=== PATIENT | female | born 1950 | race Caucasian/White ===

== ENCOUNTER 2018-01-02 06:31 | Inpatient (IN) ==
[2018-01-02] MEDS ORDERED: Metoprolol Tartrate 25 MG Tablet PO SCH (07:15)
[2018-01-02] MEDS ORDERED: Chlorhexidine Gluconate 2% 1 Pack (2 Cloths) TOPICAL SCH (07:15)
[2018-01-02] MEDS ORDERED: Dextrose 5%/NaCl 0.9% Inj 1,000 ML IV.SIG SCH (07:30)
[2018-01-02] MEDS ORDERED: ceFAZolin 2 GM IV; once IV.SIG ONE (07:30)
[2018-01-02] MEDS ORDERED: Sodium Chlor 0.9% Inj 500 ML IV.SIG SCH (08:00)
[2018-01-02] MEDS ORDERED: Neostigmine Inj 5 MG/5 ML Syringe IV.PUSH ONE (12:00)
[2018-01-02] MEDS ORDERED: Phenylephrine/NS 1000 MCG/10ML Syringe IV.PUSH ONE (12:00)
[2018-01-02] MEDS ORDERED: Ketorolac Inj 30 MG/ML (IVP) Vial IV.PUSH ONE (12:00)
[2018-01-02] MEDS ORDERED: Lidocaine PF 1% Inj 5 ML Syringe INFILTRATN ONE (12:00)
[2018-01-02] MEDS ORDERED: Glycopyrrolate Inj 1 MG/5 ML Syringe IV.PUSH ONE (12:00)
[2018-01-02] MEDS ORDERED: KCL 20 mEq/D5W/NaCl 0.9% Inj 1,000 ML IV.CONT SCH (16:00)
[2018-01-02] MEDS ORDERED: fentaNYL Citrate Inj 100 MCG/2 ML Ampul ONE (16:12)
[2018-01-02] MEDS ORDERED: Morphine Inj 4 MG/ML Vial ONE (16:12)
[2018-01-02] MEDS ORDERED: *morphine SULFATE 4 MG/ML PERIprocedure ONLY ONE ×2 (16:17→18:01)
--- NOTE | 2018-01-02 16:27 | MP ---
cc: Penny Walton MD DATE OF OPERATION: 01/02/2018 DATE OF VISIT: 01/02/2018. PREOPERATIVE DIAGNOSES: 1. Colon stricture. 2. Colovaginal fistula. 3. Diverticulitis. POSTOPERATIVE DIAGNOSES: 1. Colon stricture. 2. Colovaginal fistula. 3. Diverticulitis. 4. Adhesions. 5. Small bowel lesion. PROCEDURE PERFORMED: 1. Robotic/laparoscopic lysis of adhesions. 2. Robotic takedown of the splenic flexure. 3. Robotic low anterior resection. 4. Robotic small bowel resection. OPERATIVE FINDINGS: The patient had a phlegmonous sigmoid colon that was folded over and adherent down into the pelvis and along the vaginal cuff. In addition she had evidence of thickening of the bowel through this area. The liver was visibly normal. The gallbladder, uterus and ovaries were absent. In the proximal ileum the patient had a 3-4 mm firm lesion in the antimesenteric side, which appeared to be full-thickness. OPERATIVE COURSE: The patient was brought to the operating room, and placed in the supine position. After induction of general anesthesia, the patient was placed in Aaron stirrups and all bony prominences were carefully padded. The skin of the anterior abdominal wall, as well as the perineal area, was then prepped and draped in the usual sterile fashion. A site for the camera was then chosen, just to the right and above the umbilicus. A 10/12 port was placed at this location, under direct vision using the laparoscope. CO2 insufflation was then undertaken. A brief abdominal survey was then performed, with nothing noted that would preclude the robotic approach. The #1 port, which was also a 10/12, was then placed just inside the right anterior superior iliac spine, under direct vision of the laparoscope. A #5 assist port was placed under the right costal margin, equal distance between the camera and the #1 port. The patient was hydroplaned with the head down and slightly to the right and the small bowel was attempted to be brought up and out of the pelvis. However, due to her extremely short mesentery, the small bowel was very difficult to work around throughout the entirety of the case. After evaluation of the descending colon and the sigmoid colon, I did feel that we would need to take down the splenic flexure, and so the remaining ports were placed as follows: The #3 port, which was an 8 da Sera, was placed in the umbilical line, in the left anterior axillary line, and the #2 port was placed in the left midclavicular line, 4 fingerbreadths above the umbilical line. The robot was then docked. The sigmoid colon was retracted down and to the left, and the peritoneum on the right was scored. Dissection was continued in this plane, underneath the vessels, over to the lateral side; however, I was not able to visualize the ureter as we did not have placement of ureteral stents as planned. With this, I elected to proceed with a lateral approach. The lateral peritoneal attachments of the sigmoid and descending colon were carefully dissected free. Unfortunately, because of the fold over and adhesions down in the pelvis, it was necessary to dissect these out as well before I could locate the ureter. Eventually, with slow and painstaking dissection, I dissected out all of the pelvic portion of the sigmoid until I was able to straighten out the sigmoid. This was then retracted to the right and dissection continued in the lateral plane until the left ureter was clearly identified and swept away from the specimen. Dissection continued in this plane until I met my right-sided dissection. The sigmoid colon was then retracted again to the left, and the dissection was then carried out using electrocautery down to the level of the vasculature. The inferior mesenteric vessels were then dissected free circumferentially, doubly clamped proximally and distally with Hem-o-Kaiden clamps and divided. The rectosigmoid was then retracted anteriorly and dissection was continued in the posterior plane down to the level of the mid-rectum. Dissection then continued up and around the right side and the left side. Anteriorly the vaginal cuff was very adherent to the distal sigmoid. This was carefully dissected free and dissection was continued down past the peritoneal reflection onto the mid to lower rectum, to allow for healthy bowel. Eventually, we had an area of healthy bowel on the proximal rectum. The mesentery at this level was divided using the harmonic scalpel, until we had clear bowel circumferentially. A white load of the [employer]-stapler was placed across the bowel at this level. This was closed, held for 30 seconds, fired and removed. The 29 EEA stapler was then advanced through the anus and up to the rectal stump, and there was noted to be a small dog ear. With this, I elected to dissect the mesentery back a few additional centimeters, and a reload of the [employer]rock stapler was placed across the bowel at this level, taking off the dog ear. The dog ear was then removed and discarded. A small amount of fibrofatty tissue was then cleared off the rectal stump. The lateral peritoneal attachments of the descending colon were then dissected free, working both laterally and also posteriorly, freeing the descending colon mesentery from Gerota's fascia. Eventually, we continued this dissection up and around the splenic flexure, freeing the splenic flexure back to the lesser sac, but did not dissect into the lesser sac. This allowed the splenic flexure freedom so that we could bring the bowel down with plenty of length to make an anastomosis. The bowel was then brought down and I felt that we had adequate length for our reanastomosis. Throughout the case the patient had lots of fairly fragile tissue with lots of oozing, but not bonny bleeding. Because of this, I did elect to put some Surgicel posteriorly over Gerota's fascia on the left, where she had a fairly large dissection bed, prior to undocking the robot. The robot was then undocked. A 10-15 cm transverse incision was made in the suprapubic area. Using electrocautery, dissection was carried down to the fascia of the anterior abdominal wall, which was split the length of the skin incision. The medial fibers of the rectus abdominis muscle were then divided using electrocautery, as was the posterior fascia and peritoneum. A wound protector was then placed, and the proximal stapled end of the bowel was grasped and pulled up and out through the incision. A site was then chosen for proximal division of the bowel, where the bowel appeared pink and healthy. The mesentery at this level was serially divided and ligated using 0 Vicryl ties, and a pursestring stapling device was placed across the bowel at this level. The bowel was amputated and taken to the back table where it was later opened and no sign of any cancer was noted. This was then sent for pathology. The anvil from the 29 EEA stapler was then placed into the cut end of the bowel and the previously placed pursestring suture was then secured. The small bowel was then run, beginning at the ligament of Treitz and proceeding distally to the terminal ileum. In the proximal ileum she was noted to have a tiny 3-4 mm firm nodule which was kind of whitish in color. Unfortunately, it appeared to be full thickness. I did not feel that biopsy of the lesion was safe, so I elected to resect it. The edge of the bowel was pulled away from the remainder of the bowel in a longitudinal direction to avoid any additional narrowing and a 30 cm stapling device was placed across the bowel at this level. This was fired and the specimen was then sent for pathology. The staple line was then reinforced with a running suture of 3-0 Vicryl. The bowel at this level was palpated and was found to be patent. The small bowel was then returned to the peritoneal cavity with no other significant abnormalities on the bowel. The 29 EEA stapler was advanced through the anus to the rectal stump. At that point, after evaluation, I felt that the tissue looked a little fragile and so I elected to go back an additional 2 cm. The mesentery was dissected back and a contour stapling device was placed across the bowel at this level. This was closed, fired, and removed. The stapler was again advanced to the rectal stump and lay nicely and in a better orientation with healthier bowel. The spike was advanced just posterior to the staple line. The anvil was into the spike, being careful that the bowel was not twisted. The stapler was then closed, held for 30 seconds, fired and removed, thus creating an enteroenterotomy. Both anastomotic rings appeared to be complete and the anastomosis appeared pink and healthy circumferentially. A small amount of warm normal saline was placed into the pelvis and air was insufflated into the rectum until gentle tension was noted on the anastomosis, with no sign of any bleeding noted. The anastomosis lay in a nice orientation, with no tension noted on the anastomosis. Additional Surgicel was then placed posteriorly in the pelvis to help prevent any oozing. The posterior fascia was then closed in a running fashion using #1 PDS. The wound was copiously irrigated with warm normal saline. The anterior fascia of the suprapubic site was closed in a running fashion using #1 PDS. The wound was copiously irrigated with warm normal saline and the skin was closed in a running subcuticular fashion using 3-0 Vicryl. An Op-Site was then placed and CO2 insufflation was then resumed. The laparoscope was brought onto the field, and replaced into the peritoneal cavity. The fascia at the right lower quadrant and umbilical site, which were the 10/12 trocar sites, were then closed using the cross bow device and #1 PDS suture. The wounds were copiously irrigated with warm normal saline and the skin at the trocar sites were closed in interrupted subcuticular fashion with 3-0 Vicryl. All sponge, needle and instrument counts were correct and the patient was returned to the Postanesthesia Care Unit in stable condition. MD RADHA Diallo/ONDINA , 03:40 PM , 04:26 PM MTDD
[2018-01-02 16:34] LABS: Baso % (Auto) 0.3 % (0.0-2.0); Eos % (Auto) 0.1 % (0.0-4.0); Hematocrit 39.2 % (35.0-46.0); Hemoglobin 13.1 gm/dL (11.6-15.3); Lymph # (Auto) 0.9 th/mm3 (1.0-4.8); Lymph % (Auto) 10.1 % (9.0-44.0); Mean Corpuscular HGB Conc 33.3 % (32.0-36.0); Mean Corpuscular Hemoglobin 29.5 pg (27.0-34.0); Mean Corpuscular Volume 88.5 fL (80.0-100.0); Mean Platelet Volume 7.5 fL (7.0-11.0); Mono # (Auto) 0.4 th/mm3 (0.0-0.9); Mono % (Auto) 4.2 % (0.0-8.0); Neut # (Auto) 7.6 th/mm3 (1.8-7.7); Neut % (Auto) 85.3 % (16.0-70.0); Platelet Count 153 th/mm3 (150-450); Red Blood Count 4.43 mil/mm3 (4.00-5.30); Red Cell Distribution Width 14.2 % (11.6-17.2); White Blood Count 8.9 th/mm3 (4.0-11.0)
[2018-01-02 16:51] LABS: Calcium 7.6 mg/dL (8.5-10.1); Carbon Dioxide 22.9 meq/L (21.0-32.0); Potassium 4.2 meq/L (3.5-5.1)
[2018-01-02] MEDS ORDERED: ceFAZolin 2 GM Premix Inj 2 GM/50 ML PIGGYBACK IV.SIG ONE (17:10)
[2018-01-02] MEDS ORDERED: KCL 20 mEq/D5W/NaCl 0.9% Inj 1,000 ML ONE (17:18)
[2018-01-02] MEDS ORDERED: Morphine Inj 30 MG/30 ML PCA.VIAL PCA PRN (20:04)
[2018-01-02] MEDS ORDERED: Naloxone Inj 0.4 MG/ML Vial IV.PUSH PRN (20:04)
[2018-01-02] MEDS ORDERED: Morphine Inj 4 MG/ML Vial IV.SIG ONE (20:04)
[2018-01-02] MEDS: Gabapentin 300 MG Capsule PO SCH (20:52)
[2018-01-02] MEDS: Metoprolol Tartrate 50 MG Tablet PO SCH (20:53)
[2018-01-02] MEDS: Heparin - SQ 10,000 UNITS/ML Vial SQ SCH (20:54)
[2018-01-03] MEDS: KCL 20 mEq/D5W/NaCl 0.9% Inj 1,000 ML IV.SIG SCH ×3 (01:21→19:00)
[2018-01-03 04:27] LABS: Baso % (Auto) 0.2 % (0.0-2.0); Eos % (Auto) 0.1 % (0.0-4.0); Hematocrit 38.1 % (35.0-46.0); Hemoglobin 12.6 gm/dL (11.6-15.3); Lymph % (Auto) 13.5 % (9.0-44.0); Mean Corpuscular HGB Conc 33.2 % (32.0-36.0); Mean Corpuscular Hemoglobin 29.2 pg (27.0-34.0); Mean Corpuscular Volume 87.9 fL (80.0-100.0); Mean Platelet Volume 7.6 fL (7.0-11.0); Mono # (Auto) 0.4 th/mm3 (0.0-0.9); Mono % (Auto) 4.8 % (0.0-8.0); Neut # (Auto) 6.1 th/mm3 (1.8-7.7); Neut % (Auto) 81.4 % (16.0-70.0); Platelet Count 136 th/mm3 (150-450); Red Blood Count 4.33 mil/mm3 (4.00-5.30); Red Cell Distribution Width 14.3 % (11.6-17.2); White Blood Count 7.5 th/mm3 (4.0-11.0)
[2018-01-03 04:50] LABS: Calcium 7.5 mg/dL (8.5-10.1); Potassium 4.5 meq/L (3.5-5.1)
[2018-01-03] MEDS: Heparin - SQ 10,000 UNITS/ML Vial SQ SCH (09:07)
[2018-01-03] MEDS ORDERED: Dextrose 50% in Water 50 ML Vial IV.PUSH PRN (10:52)
[2018-01-03] MEDS: Insulin NovoLOG Aspart Correctional Sugar Inj SQ SCH ×3 (12:47→22:45)
--- NOTE | 2018-01-03 13:56 | XR ---
EXAM DATE: 01/03/2018 1:52 PM EDT AGE/SEX: 67 years / Female INDICATIONS: Check for ileus. Abdominal surgery yesterday. CLINICAL DATA: This is the patient's subsequent encounter. Patient reports that signs and symptoms h ave been present for 1 day and indicates a pain score of 10/10. MEDICAL/SURGICAL HISTORY: None. . Small bowel resection. COMPARISON: No prior exams available for comparison. FINDINGS: There is gas in a few loops of small bowel which measure up to 3.5 cm. No disproportionately dilated loops of bowel.. The visualized lower lungs are clear. 3.2 cm staghorn calculus projects of the left kidney. Amorphous calcification in the right flank superimposed upon the lower pole of the right kidn ey measures 11 mm. Hemoclips in the right upper quadrant. The osseous structures are intact. CONCLUSION: 1. Scattered mildly dilated loops of small bowel suggesting ileus. 2. Bilateral calcified renal stones. Electronically signed by: Alan Caputo MD 01/03/2018 1:55 PM EDT
[2018-01-04] MEDS ORDERED: Metoprolol Inj 5 MG/5 ML Vial IV.PUSH PRN (01:43)
[2018-01-04] MEDS: Heparin - SQ 10,000 UNITS/ML Vial SQ SCH ×3 (03:19→20:40)
[2018-01-04] MEDS: Metoprolol Tartrate 50 MG Tablet PO SCH ×2 (03:20→20:40)
[2018-01-04] MEDS: Gabapentin 300 MG Capsule PO SCH ×2 (03:20→20:40)
[2018-01-04] MEDS: KCL 20 mEq/D5W/NaCl 0.9% Inj 1,000 ML IV.SIG SCH ×4 (05:09→21:44)
[2018-01-04 05:39] LABS: Baso % (Auto) 0.6 % (0.0-2.0); Eos # (Auto) 0.1 th/mm3 (0.0-0.4); Eos % (Auto) 1.3 % (0.0-4.0); Hematocrit 31.8 % (35.0-46.0); Hemoglobin 10.7 gm/dL (11.6-15.3); Lymph # (Auto) 1.4 th/mm3 (1.0-4.8); Lymph % (Auto) 23.1 % (9.0-44.0); Mean Corpuscular HGB Conc 33.5 % (32.0-36.0); Mean Corpuscular Hemoglobin 29.7 pg (27.0-34.0); Mean Corpuscular Volume 88.6 fL (80.0-100.0); Mean Platelet Volume 7.2 fL (7.0-11.0); Mono # (Auto) 0.3 th/mm3 (0.0-0.9); Mono % (Auto) 5.2 % (0.0-8.0); Neut # (Auto) 4.3 th/mm3 (1.8-7.7); Neut % (Auto) 69.8 % (16.0-70.0); Platelet Count 110 th/mm3 (150-450); Red Cell Distribution Width 14.5 % (11.6-17.2); White Blood Count 6.1 th/mm3 (4.0-11.0)
[2018-01-04 06:04] LABS: Calcium 7.8 mg/dL (8.5-10.1); Carbon Dioxide 24.1 meq/L (21.0-32.0); Potassium 4.1 meq/L (3.5-5.1)
[2018-01-04] MEDS: Insulin NovoLOG Aspart Correctional Sugar Inj SQ SCH ×5 (08:26→20:47)
[2018-01-05 04:23] LABS: Baso % (Auto) 0.5 % (0.0-2.0); Eos # (Auto) 0.1 th/mm3 (0.0-0.4); Eos % (Auto) 1.6 % (0.0-4.0); Hematocrit 36.7 % (35.0-46.0); Hemoglobin 12.2 gm/dL (11.6-15.3); Lymph # (Auto) 0.8 th/mm3 (1.0-4.8); Lymph % (Auto) 12.9 % (9.0-44.0); Mean Corpuscular HGB Conc 33.1 % (32.0-36.0); Mean Corpuscular Hemoglobin 29.1 pg (27.0-34.0); Mean Corpuscular Volume 87.8 fL (80.0-100.0); Mean Platelet Volume 7.3 fL (7.0-11.0); Mono # (Auto) 0.3 th/mm3 (0.0-0.9); Mono % (Auto) 5.3 % (0.0-8.0); Neut % (Auto) 79.7 % (16.0-70.0); Platelet Count 130 th/mm3 (150-450); Red Blood Count 4.19 mil/mm3 (4.00-5.30); White Blood Count 6.3 th/mm3 (4.0-11.0)
[2018-01-05 04:31] LABS: Calcium 8.5 mg/dL (8.5-10.1); Carbon Dioxide 25.7 meq/L (21.0-32.0); Potassium 3.9 meq/L (3.5-5.1)
[2018-01-05] MEDS: Insulin NovoLOG Aspart Correctional Sugar Inj SQ SCH ×4 (08:20→22:58)
[2018-01-05] MEDS: Heparin - SQ 10,000 UNITS/ML Vial SQ SCH ×2 (08:22→22:57)
--- NOTE | 2018-01-05 14:57 | P.PN ---
Subjective Interval history: POD#3 s/p LAR, SBR anxious, wants to go home burping Physical Exam Vital signs: Vital Signs 01/04/18 15:00 01/04/18 16:00 01/04/18 16:18 Temperature 98.2 F Pulse Rate 103 H 100 H 109 H Respiratory Rate 16 Blood Pressure 153/67 H Pulse Oximetry 94 L 01/04/18 16:28 01/04/18 16:37 01/04/18 16:43 Temperature Pulse Rate 140 H 142 H 142 H Respiratory Rate Blood Pressure Pulse Oximetry 01/04/18 16:50 01/04/18 17:00 01/04/18 18:00 Temperature Pulse Rate 140 H 116 H 114 H Respiratory Rate Blood Pressure Pulse Oximetry 01/04/18 19:00 01/04/18 19:50 01/04/18 20:00 Temperature 98.3 F Pulse Rate 119 H 119 H 132 H Respiratory Rate 22 Blood Pressure 159/70 H Pulse Oximetry 92 L 01/04/18 21:00 01/04/18 22:00 01/04/18 23:00 Temperature Pulse Rate 114 H 98 H 96 H Respiratory Rate Blood Pressure Pulse Oximetry 01/04/18 23:15 01/05/18 00:00 01/05/18 01:00 Temperature 98.0 F Pulse Rate 89 90 104 H Respiratory Rate 20 Blood Pressure 134/61 Pulse Oximetry 98 01/05/18 02:00 01/05/18 03:00 01/05/18 03:10 Temperature 98 F Pulse Rate 114 H 98 H 102 H Respiratory Rate 20 Blood Pressure 144/65 H Pulse Oximetry 98 01/05/18 04:00 01/05/18 05:00 01/05/18 06:00 Temperature Pulse Rate 120 H 110 H 118 H Respiratory Rate Blood Pressure Pulse Oximetry 01/05/18 07:00 01/05/18 08:00 01/05/18 09:00 Temperature 98.1 F Pulse Rate 99 H 96 H 99 H Respiratory Rate 18 Blood Pressure 147/68 H Pulse Oximetry 98 01/05/18 10:00 01/05/18 11:00 01/05/18 11:57 Temperature 98.0 F Pulse Rate 102 H 116 H 105 H Respiratory Rate 18 Blood Pressure 157/71 H Pulse Oximetry 98 01/05/18 13:00 01/05/18 14:00 Temperature Pulse Rate 119 H 114 H Respiratory Rate Blood Pressure Pulse Oximetry Intake & Output 01/04/18 01/05/18 01/05/18 18:59 06:59 18:59 Intake Total 3340 / 3340 1420 / 1420 Output Total 1775 / 1775 600 / 600 Balance 1565 / 1565 820 / 820 Weight 93.4 kg Intake: IV 1000 / 1000 1000 / 1000 D5W/NS + KCL 20 mEq Inj 1,000 1000 / 1000 1000 / 1000 ML @ 83 mls/hr IV.SIG .[id number] [facility] Rx#:[id number] Oral 2340 / 2340 420 / 420 Output: Urine 875 / 875 600 / 600 Urine Amount (Catheter) 900 / 900 Indwelling Urethral Catheter 900 / 900 Narrative: Afeb Tachycardic, one episode of bradycardia with ambulation - Constitutional mild distress - Routine Respiratory Exam Comments: breathing comfortably, symmetric - Detailed Abdominal Exam Bowel sounds: absent Comments: Soft, moderate distension Tender as expected wounds clean - Urinary Catheter Management Indwelling Urethral Catheter Cath placed during this visit: yes, but has since been removed by the nurse Reason for continuing: Decision to DC catheter Insertion date: 01/02/18 Removal date: 01/04/18 Removal time: 09:45 Results - Labs CBC & Chem 7: 01/05/18 03:27 01/05/18 03:27 Laboratory Results - last 24 hr 01/04/18 01/04/18 01/05/18 16:25 20:46 03:27 WBC 6.3 RBC 4.19 Hgb 12.2 Hct 36.7 MCV 87.8 MCH 29.1 MCHC 33.1 RDW 14.0 Plt Count 130 L MPV 7.3 Neut % (Auto) 79.7 H Lymph % (Auto) 12.9 Dougherty % (Auto) 5.3 Eos % (Auto) 1.6 Baso % (Auto) 0.5 Neut # (Auto) 5.0 Lymph # (Auto) 0.8 L Dougherty # (Auto) 0.3 Eos # (Auto) 0.1 Baso # (Auto) 0.0 WBC Differential . Differential Comment Auto diff final Sodium Potassium Chloride Carbon Dioxide Anion Gap BUN Creatinine Estimated GFR POC Glucose 195 H 272 H Random Glucose Calcium 01/05/18 01/05/18 01/05/18 03:27 08:12 11:51 WBC RBC Hgb Hct MCV MCH MCHC RDW Plt Count MPV Neut % (Auto) Lymph % (Auto) Dougherty % (Auto) Eos % (Auto) Baso % (Auto) Neut # (Auto) Lymph # (Auto) Dougherty # (Auto) Eos # (Auto) Baso # (Auto) WBC Differential Differential Comment Sodium 142 Potassium 3.9 Chloride 110 H Carbon Dioxide 25.7 Anion Gap 6 BUN 4 L Creatinine 0.66 Estimated GFR 89 POC Glucose 236 H 184 H Random Glucose 219 H Calcium 8.5 Assessment and Plan - Assessment (1) Diverticulitis Code(s): K57.92 - Diverticulitis of intestine, part unspecified, without perforation or abscess without bleeding Status: Acute (2) Colovaginal fistula Code(s): N82.4 - Other female intestinal-genital tract fistulae Status: Acute - Plan Bradycardia with ambulation Labs/EKG - rule out PE and LA Distension Most likely secondary to SBR - ileus Clears only KUB in am fluid overload Lasix
--- NOTE | 2018-01-05 15:50 | XR ---
EXAM DATE: 01/05/2018 3:37 PM EDT AGE/SEX: 67 years / Female INDICATIONS: Distention. CLINICAL DATA: This is the patient's subsequent encounter. Patient reports that signs and symptoms h ave been present for 2 days and indicates a pain score of 3/10. MEDICAL/SURGICAL HISTORY: None. . Small bowel resection. COMPARISON: [facility] [place]OMEN 2V FLAT & UPRIGHT, 01/03/2018. . FINDINGS: 2 AP supine views of the abdomen were obtained and demonstrate multiple loops of borderline dilated air-containing small bowel in the central abdomen and pelvis. These may be slightly increased in numb er. Gas is noted segmentally in the right side of the colon and distal colon. There is air in the sto mach. Staghorn type calculus is again noted in the left kidney. There are right renal calculi again n oted. The patient is status post cholecystectomy. The bony structures remain stable and intact with s coliosis in the lumbar spine. CONCLUSION: 1. Nonspecific bowel gas pattern again noted with multiple loops of borderline dilated air-containin g small bowel which may be slightly more numerous. Gas is noted segmentally in the colon and the find ings remain most characteristic with an ileus. 2. Staghorn calculus in the left kidney and smaller right renal calculi. Electronically signed by: Jagjit Moss MD 01/05/2018 3:48 PM EDT
[2018-01-05] MEDS: Sod Chloride 0.9% Inj 1,000 ML IV.CONT SCH (16:25)
[2018-01-05 17:43] LABS: ABG Base Excess 1.4 mmol/L (-2-2); ABG PCO2 35 mmHg (38-42); ABG PO2 67 mmHG (61-120)
--- NOTE | 2018-01-05 19:14 | CT ---
EXAM DATE: 01/05/2018 7:09 PM EDT AGE/SEX: 67 years / Female INDICATIONS: Shortness of breath and elevated D-dimer today. CLINICAL DATA: This is the patient's initial encounter. Patient reports that signs and symptoms have been present for 1 day and indicates a pain score of 0/10. MEDICAL/SURGICAL HISTORY: Chronic obstructive pulmonary disease. Renal calculi. Hysterectomy. Thy roidectomy. RADIATION DOSE: 10.7 CTDI (mGy) COMPARISON: No prior exams available for comparison. TECHNIQUE: Volumetric scanning was performed using a multi-row detector CT scanner during bolus infu nyla of 71 ml Omnipaque 350 (iohexol) nonionic water-soluble contrast as a single exam dose. The romy a was post processed with a variety of visualization algorithms including full volume maximum intensi ty projection and sliding thin slab reformation. Using automated exposure control and adjustment of t he mA and/or kV according to patient size, radiation dose was kept as low as reasonably achievable to obtain optimal diagnostic quality images. DICOM format image data is available electronically for r eview and comparison. FINDINGS: Pulmonary Arteries: No filling defects are seen in the pulmonary arteries out to the subsegmental ve ssels. The left and right pulmonary arteries are normal in diameter. Lung: There is emphysematous change seen in the upper lungs being more prominent on the right. There are scattered subpleural areas of hazy density seen in the upper lobes bilaterally and anterior righ t middle lobe and at the bases. Effusion: None. Mediastinum: No evidence of mediastinal or hilar adenopathy. Other: The axilla is unremarkable. CONCLUSION: 1. No pulmonary embolus. 2. Scattered areas of subpleural consolidation or atelectasis. 3. Emphysematous change in the upper lungs. Electronically signed by: Nabor May MD 01/05/2018 7:13 PM EDT
[2018-01-05] MEDS: Gabapentin 300 MG Capsule PO SCH (22:58)
[2018-01-05] MEDS: Metoprolol Tartrate 50 MG Tablet PO SCH (22:58)
[2018-01-06] MEDS: KCL 20 mEq/D5W/NaCl 0.9% Inj 1,000 ML IV.SIG SCH (07:15)
[2018-01-06] MEDS: Insulin NovoLOG Aspart Correctional Sugar Inj SQ SCH ×4 (09:02→21:07)
[2018-01-06] MEDS: Heparin - SQ 10,000 UNITS/ML Vial SQ SCH ×2 (09:03→21:23)
[2018-01-06] MEDS ORDERED: dilTIAZem Inj 125 MG in Sodium Chlor 0.9% Inj 100 ML IV.CONT PRN (09:49)
--- NOTE | 2018-01-06 10:00 | P.PN ---
Subjective Interval history: POD#4 s/p LAR, SBR Ileus less anxious Physical Exam Vital signs: Vital Signs 01/05/18 10:00 01/05/18 11:00 01/05/18 11:57 Temperature 98.0 F Pulse Rate 102 H 116 H 105 H Respiratory Rate 18 Blood Pressure 157/71 H Pulse Oximetry 98 01/05/18 13:00 01/05/18 14:00 01/05/18 15:00 Temperature 98.1 F Pulse Rate 119 H 114 H 112 H Respiratory Rate 18 Blood Pressure 113/55 L Pulse Oximetry 98 01/05/18 16:00 01/05/18 17:00 01/05/18 18:00 Temperature Pulse Rate 112 H 110 H 116 H Respiratory Rate Blood Pressure Pulse Oximetry 01/05/18 19:00 01/05/18 20:00 01/05/18 21:00 Temperature 98.3 F Pulse Rate 112 H 112 H 116 H Respiratory Rate 20 Blood Pressure 163/75 H Pulse Oximetry 01/05/18 22:00 01/05/18 23:00 01/06/18 00:00 Temperature 97.8 F Pulse Rate 112 H 122 H 115 H Respiratory Rate 20 Blood Pressure 137/64 Pulse Oximetry 93 L 01/06/18 01:00 01/06/18 02:00 01/06/18 03:00 Temperature 98.4 F Pulse Rate 115 H 127 H 125 H Respiratory Rate 18 Blood Pressure 150/69 H Pulse Oximetry 96 01/06/18 04:00 01/06/18 05:00 01/06/18 06:00 Temperature Pulse Rate 116 H 128 H 114 H Respiratory Rate Blood Pressure Pulse Oximetry 01/06/18 07:00 Temperature 97.8 F Pulse Rate 120 H Respiratory Rate 18 Blood Pressure 151/70 H Pulse Oximetry 93 L Intake & Output 01/05/18 01/06/18 01/06/18 18:59 06:59 18:59 Intake Total 1480 / 1480 0 / 0 Output Total 1250 / 1250 Balance 1480 / 1480 -1250 / -1250 Weight 94 kg Intake: IV 1000 / 1000 Oral 480 / 480 0 / 0 Output: Urine 800 / 800 Emesis 450 / 450 Other: Date of Last Bowel Movement 01/02/18 # Emeses 3 - Constitutional mild distress - Routine Cardiovascular Exam Comments: RR, but steadily tachycardic - Routine Abdominal Exam Comments: Still bloated, but softer mild tenderness as expected incisions clean - Urinary Catheter Management Indwelling Urethral Catheter Cath placed during this visit: yes, but has since been removed by the nurse Reason for continuing: Decision to DC catheter Insertion date: 01/02/18 Removal date: 01/04/18 Removal time: 09:45 Results - Labs CBC & Chem 7: 01/05/18 03:27 01/05/18 03:27 Laboratory Results - last 24 hr 01/05/18 01/05/18 01/05/18 11:51 15:10 15:10 D-Dimer Quant (PE/DVT) 8.56 H Puncture Site Patient Temperature O2 Saturation ABG pH ABG pCO2 ABG pO2 ABG HCO3 ABG O2 Content ABG Base Excess ABG Methemoglobin Aaron Test Hemoglobin Carboxyhemoglobin Inspired O2 Critical Value POC Glucose 184 H Troponin I Less than 0.02 L 01/05/18 01/05/18 01/05/18 17:15 17:17 20:28 D-Dimer Quant (PE/DVT) Puncture Site Right radial Patient Temperature 98.6 O2 Saturation 91 ABG pH 7.46 H ABG pCO2 35 L ABG pO2 67 ABG HCO3 25 ABG O2 Content 15.7 ABG Base Excess 1.4 ABG Methemoglobin 1.5 Aaron Test Present Hemoglobin 12.2 Carboxyhemoglobin 2.0 Inspired O2 21 Critical Value No POC Glucose 178 H 196 H Troponin I 01/06/18 07:34 D-Dimer Quant (PE/DVT) Puncture Site Patient Temperature O2 Saturation ABG pH ABG pCO2 ABG pO2 ABG HCO3 ABG O2 Content ABG Base Excess ABG Methemoglobin Aaron Test Hemoglobin Carboxyhemoglobin Inspired O2 Critical Value POC Glucose 223 H Troponin I - Imaging Impressions Abdomen X-Ray 01/05/18 00:00 CONCLUSION: 1. Nonspecific bowel gas pattern again noted with multiple loops of borderline dilated air-containing small bowel which may be slightly more numerous. Gas is noted segmentally in the colon and the findings remain most characteristic with an ileus. 2. Staghorn calculus in the left kidney and smaller right renal calculi. Chest CTA 01/05/18 00:00 CONCLUSION: 1. No pulmonary embolus. 2. Scattered areas of subpleural consolidation or atelectasis. 3. Emphysematous change in the upper lungs. Assessment and Plan - Assessment (1) Diverticulitis Code(s): K57.92 - Diverticulitis of intestine, part unspecified, without perforation or abscess without bleeding Status: Acute (2) Colovaginal fistula Code(s): N82.4 - Other female intestinal-genital tract fistulae Status: Acute - Plan Still tachycardic, MO w/u negative start cardizem drip, Cardiology consult Ileus NGT placed await bowel function check KUB in am PE w/u negative fluid status even continue low dose lasix check labs
--- NOTE | 2018-01-06 11:04 | ECG ---
Date Performed: 01/05/2018 Time Performed: 15:15:14 PTAGE: 67 years EKG: Sinus tachycardia with sinus arrhythmia with PVC(s) Possible inferior infarct - age undeter mined Possible anterior infarct - age undetermined Low QRS voltages in precordial leads Abnormal ECG NO PREVIOUS TRACING DOCTOR: Joselo Feliz Interpretating Date/Time 01/06/2018 11:01:43
[2018-01-06] MEDS: Benzocaine 20% Oral Spray 60 ML Can OROPHARYNG PRN ×2 (11:14→18:43)
[2018-01-06] MEDS: Promethazine 12.5 MG Supp RECTAL PRN ×2 (11:23→19:32)
[2018-01-06 13:53] LABS: Potassium 3.3 meq/L (3.5-5.1)
[2018-01-06] MEDS: Sod Chloride 0.9% Inj 1,000 ML IV.CONT SCH (16:32)
[2018-01-06] MEDS: Gabapentin 300 MG Capsule PO SCH (21:07)
[2018-01-06] MEDS: Metoprolol Tartrate 50 MG Tablet PO SCH (21:07)
[2018-01-06] MEDS: Potassium Chloride Inj 30 MEQ in Sod Chloride 0.9% Inj 1,000 ML IV.SIG SCH (22:32)
--- NOTE | 2018-01-07 01:25 | MB ---
cc: Maxim Goodrich DO DATE: 01/06/2018 REASON FOR CONSULTATION: Tachycardia. HISTORY OF PRESENT ILLNESS: Marco Jiang is a pleasant 67-year-old female who underwent laparoscopic sigmoid colectomy by Dr. Walton due to a colovaginal fistula. Afterwards, she was noted to have tachycardia and I was asked to see her for such. When seeing her, she is currently hemodynamically stable and mildly tachycardic. Telemetry shows sinus tachycardia. A CTA was done to rule out pulmonary embolus and showed no filling defects. She currently has a nasogastric tube in, with significant bilious output. Overall, she is having pain due to her surgery, which appears appropriate and significantly nauseated. Troponin was checked and it was less than 0.02. PAST MEDICAL HISTORY: 1. Hypertension. 2. Benign PVCs. 3. COPD. 4. Sleep apnea, on CPAP. 5. Tobacco abuse. 6. Neuropathy. 7. Diabetes mellitus. 8. GERD. 9. Kidney stones. 10. Obesity. ALLERGIES: CODEINE. MEDICATIONS: 1. Vitamin D 1000 units. 2. Chantix 1 mg b.i.d. 3. Gabapentin 600 mg every night. 4. Pravastatin 40 mg every night. 5. Metoprolol tartrate 50 mg every night. 6. Metformin 500 mg b.i.d. 7. Glimepiride 4 mg b.i.d. SOCIAL HISTORY: The patient smokes 1/2 pack of cigarettes for 50 years, but is attempting to quit on Chantix. She denies tobacco or alcohol abuse. FAMILY HISTORY: Denies sudden cardiac within the family. PHYSICAL EXAMINATION: VITAL SIGNS: Temperature 98.0, heart rate 114, blood pressure 127/57, respirations 16, pulse oximetry 96% on room air. GENERAL: The patient appears somewhat in distress due to pain and nausea. HEENT: Extraocular muscles intact. Mucous membranes moist. NG tube in place with significant bilious output. NECK: Supple. No JVD at 45 degrees. No carotid bruits heard bilaterally. Carotid upstroke is brisk in nature. HEART: Tachycardic, but positive first and second heart sounds with a regular rhythm. LUNGS: Have decreased breath sounds at bilateral bases, but no overt wheezes, rales or rhonchi. ABDOMEN: Soft, mildly tender, but nondistended. No guarding noted. EXTREMITIES: Show trace edema, but no clubbing or cyanosis. NEUROLOGIC: No focal deficits. SKIN: Warm, dry and intact. OSTEOPATHIC: Mild lordosis. No kyphoscoliosis or paraspinal tender points. LABORATORY DATA: Hemoglobin 12.2, hematocrit 36.7, platelets 130. Potassium 3.3, BUN 13, creatinine 0.69. Troponin less than 0.02. Electrocardiogram (01/05/2018 at 1515), sinus tachycardia, possible inferior infarct, age undetermined, poor R-wave progression IMPRESSION: 1. Sinus tachycardia 2. Colovesicular fistula, status post robotic-assisted sigmoidectomy. 3. Sleep apnea, on continuous positive airway pressure. 4. Remote tobacco abuse, currently trying to quit. RECOMMENDATIONS: 1. Marco Hoang underwent robotic-assisted sigmoidectomy for colovesicular fistula, after which, she has had tachycardia, which reviewing telemetry appears to be all sinus tachycardia. 2. Importantly, she has had a PE ruled out by CTA. 3. Sinus tachycardia is most likely due to pain, as well as nausea. 4. No specific treatment is necessary at this time other than treating her underlying cause of the nausea. 5. Would continue to evaluate for further causes of sinus tachycardia, including infection and fever, although this does not appear to be apparent at this time. 6. No further recommendations at this time. Thank you for allowing me to see Marco Hoang. If there are any questions, please do not hesitate to call. DO LOS Colvin , 12:52 AM , 01:23 AM TITO
[2018-01-07] MEDS: Promethazine 12.5 MG Supp RECTAL PRN ×3 (04:08→22:08)
[2018-01-07 04:52] LABS: Baso % (Auto) 0.4 % (0.0-2.0); Eos # (Auto) 0.1 th/mm3 (0.0-0.4); Eos % (Auto) 2.7 % (0.0-4.0); Hematocrit 33.8 % (35.0-46.0); Hemoglobin 11.4 gm/dL (11.6-15.3); Lymph # (Auto) 1.6 th/mm3 (1.0-4.8); Lymph % (Auto) 29.8 % (9.0-44.0); Mean Corpuscular HGB Conc 33.8 % (32.0-36.0); Mean Corpuscular Hemoglobin 29.8 pg (27.0-34.0); Mean Corpuscular Volume 88.1 fL (80.0-100.0); Mean Platelet Volume 7.2 fL (7.0-11.0); Mono # (Auto) 0.5 th/mm3 (0.0-0.9); Mono % (Auto) 8.5 % (0.0-8.0); Neut # (Auto) 3.1 th/mm3 (1.8-7.7); Neut % (Auto) 58.6 % (16.0-70.0); Platelet Count 161 th/mm3 (150-450); Red Blood Count 3.84 mil/mm3 (4.00-5.30); Red Cell Distribution Width 14.2 % (11.6-17.2); White Blood Count 5.4 th/mm3 (4.0-11.0)
[2018-01-07 05:14] LABS: Calcium 8.3 mg/dL (8.5-10.1); Carbon Dioxide 33.6 meq/L (21.0-32.0); Potassium 3.2 meq/L (3.5-5.1)
[2018-01-07] MEDS: Potassium Chloride Inj 30 MEQ in Sod Chloride 0.9% Inj 1,000 ML IV.SIG SCH ×4 (05:15→22:55)
--- NOTE | 2018-01-07 08:22 | P.PN ---
Subjective Interval history: POD#5 s/p LAR, SBR more comfortable, no further emesis Physical Exam Vital signs: Vital Signs 01/06/18 09:00 01/06/18 10:00 01/06/18 11:00 Temperature 98 F Pulse Rate 114 H 115 H 114 H Respiratory Rate 16 Blood Pressure 127/58 L Pulse Oximetry 96 01/06/18 12:00 01/06/18 13:00 01/06/18 14:00 Temperature Pulse Rate 114 H 110 H 111 H Respiratory Rate Blood Pressure Pulse Oximetry 01/06/18 15:00 01/06/18 16:00 01/06/18 17:00 Temperature 97.9 F Pulse Rate 126 H 122 H 122 H Respiratory Rate 20 Blood Pressure 146/80 H Pulse Oximetry 95 01/06/18 18:00 01/06/18 19:00 01/06/18 20:00 Temperature 98 F Pulse Rate 117 H 115 H 115 H Respiratory Rate 20 Blood Pressure 134/63 Pulse Oximetry 94 L 01/06/18 21:00 01/06/18 22:00 01/06/18 23:00 Temperature Pulse Rate 112 H 113 H 118 H Respiratory Rate Blood Pressure Pulse Oximetry 01/07/18 00:00 01/07/18 01:00 01/07/18 02:00 Temperature Pulse Rate 110 H 111 H 109 H Respiratory Rate Blood Pressure Pulse Oximetry 01/07/18 03:00 01/07/18 04:00 01/07/18 05:00 Temperature 99 F Pulse Rate 116 H 116 H 99 H Respiratory Rate 20 Blood Pressure 127/60 Pulse Oximetry 98 01/07/18 06:00 Temperature Pulse Rate 103 H Respiratory Rate Blood Pressure Pulse Oximetry Intake & Output 01/06/18 01/07/18 01/07/18 18:59 06:59 18:59 Intake Total 240 / 240 1075 / 1075 Output Total 2450 / 2450 2500 / 2500 Balance -2210 / -2210 -1425 / -1425 Weight 90.5 kg Intake: IV 1015 / 1015 KCl Inj 30 MEQ In NS Inj 1,000 1015 / 1015 ML @ 150 mls/hr IV.SIG .Q6H46M [facility] Rx#:[id number] Oral 240 / 240 60 / 60 Output: Urine 600 / 600 1300 / 1300 Gastric Drainage 1850 / 1850 1200 / 1200 Right Nare Nasogastric Tube 1850 / 1850 1200 / 1200 Other: Date of Last Bowel Movement 01/02/18 01/02/18 - Constitutional no acute distress - Routine Respiratory Exam Comments: breathing symmetric and nonlabored bilaterally - Routine Abdominal Exam Comments: Softer, still mildly distended, tender wounds clean - Routine Neurological Exam Present: alert, oriented X3 - Urinary Catheter Management Indwelling Urethral Catheter Cath placed during this visit: yes, but has since been removed by the nurse Reason for continuing: Decision to DC catheter Insertion date: 01/02/18 Removal date: 01/04/18 Removal time: 09:45 Results - Labs CBC & Chem 7: 01/07/18 03:56 01/07/18 03:56 Laboratory Results - last 24 hr 01/06/18 01/06/18 01/06/18 11:18 12:07 16:28 WBC RBC Hgb Hct MCV MCH MCHC RDW Plt Count MPV Neut % (Auto) Lymph % (Auto) [place] % (Auto) Eos % (Auto) Baso % (Auto) Neut # (Auto) Lymph # (Auto) [place] # (Auto) Eos # (Auto) Baso # (Auto) WBC Differential Differential Comment Sodium 144 Potassium 3.3 L Chloride 104 Carbon Dioxide 30.0 Anion Gap 10 BUN 13 Creatinine 0.69 Estimated GFR 84 L POC Glucose 207 H 109 Random Glucose 172 H Calcium 9.0 01/06/18 01/07/18 01/07/18 19:40 03:56 03:56 WBC 5.4 RBC 3.84 L Hgb 11.4 L Hct 33.8 L MCV 88.1 MCH 29.8 MCHC 33.8 RDW 14.2 Plt Count 161 MPV 7.2 Neut % (Auto) 58.6 Lymph % (Auto) 29.8 [place] % (Auto) 8.5 H Eos % (Auto) 2.7 Baso % (Auto) 0.4 Neut # (Auto) 3.1 Lymph # (Auto) 1.6 [place] # (Auto) 0.5 Eos # (Auto) 0.1 Baso # (Auto) 0.0 WBC Differential . Differential Comment Auto diff final Sodium 146 H Potassium 3.2 L Chloride 106 Carbon Dioxide 33.6 H Anion Gap 6 BUN 18 Creatinine 0.67 Estimated GFR 87 L POC Glucose 146 H Random Glucose 143 H Calcium 8.3 L Assessment and Plan - Assessment (1) Diverticulitis Code(s): K57.92 - Diverticulitis of intestine, part unspecified, without perforation or abscess without bleeding Status: Acute (2) Colovaginal fistula Code(s): N82.4 - Other female intestinal-genital tract fistulae Status: Acute - Plan Appreciate cardiology input HR improving Ileus NGT with large output continue fluid status slightly dry hold lasix continue IVF [employer]
[2018-01-07] MEDS: Heparin - SQ 10,000 UNITS/ML Vial SQ SCH ×2 (09:50→22:07)
[2018-01-07] MEDS: Insulin NovoLOG Aspart Correctional Sugar Inj SQ SCH ×4 (09:51→22:22)
[2018-01-07] MEDS: Potassium Chlor 20 mEq Premix 20 MEQ/100 ML PIGGYBACK IV.SIG SCH ×2 (09:57→13:16)
[2018-01-07] MEDS: Benzocaine 20% Oral Spray 60 ML Can OROPHARYNG PRN ×2 (10:00→16:11)
--- NOTE | 2018-01-07 11:52 | P.PNCA ---
Subjective Interval history: No events overnight Telemetry with sinus tachycardia, heart rates overall better Pain less, nausea less Physical Exam Vital signs: Vital Signs 01/06/18 12:00 01/06/18 13:00 01/06/18 14:00 Temperature Pulse Rate 114 H 110 H 111 H Respiratory Rate Blood Pressure Pulse Oximetry 01/06/18 15:00 01/06/18 16:00 01/06/18 17:00 Temperature 97.9 F Pulse Rate 126 H 122 H 122 H Respiratory Rate 20 Blood Pressure 146/80 H Pulse Oximetry 95 01/06/18 18:00 01/06/18 19:00 01/06/18 20:00 Temperature 98 F Pulse Rate 117 H 115 H 115 H Respiratory Rate 20 Blood Pressure 134/63 Pulse Oximetry 94 L 01/06/18 21:00 01/06/18 22:00 01/06/18 23:00 Temperature Pulse Rate 112 H 113 H 118 H Respiratory Rate Blood Pressure Pulse Oximetry 01/07/18 00:00 01/07/18 01:00 01/07/18 02:00 Temperature Pulse Rate 110 H 111 H 109 H Respiratory Rate Blood Pressure Pulse Oximetry 01/07/18 03:00 01/07/18 04:00 01/07/18 05:00 Temperature 99 F Pulse Rate 116 H 116 H 99 H Respiratory Rate 20 Blood Pressure 127/60 Pulse Oximetry 98 01/07/18 06:00 01/07/18 07:00 Temperature 98.9 F Pulse Rate 103 H 107 H Respiratory Rate 17 Blood Pressure 152/69 H Pulse Oximetry 92 L Intake & Output 01/06/18 01/07/18 01/07/18 18:59 06:59 18:59 Intake Total 240 / 240 1075 / 1075 Output Total 2450 / 2450 2500 / 2500 Balance -2210 / -2210 -1425 / -1425 Weight 90.5 kg Intake: IV 1015 / 1015 KCl Inj 30 MEQ In NS Inj 1,000 1015 / 1015 ML @ 150 mls/hr IV.SIG .Q6H46M [facility] Rx#:[id number] Oral 240 / 240 60 / 60 Output: Urine 600 / 600 1300 / 1300 Gastric Drainage 1850 / 1850 1200 / 1200 Right Nare Nasogastric Tube 1850 / 1850 1200 / 1200 Other: Date of Last Bowel Movement 01/02/18 01/02/18 01/02/18 Narrative: GENERAL: NAD, AAOx3 SKIN: Warm and dry. HEAD: Atraumatic. Normocephalic. EYES: Pupils equal and round. No scleral icterus. No injection or drainage. ENT: No nasal bleeding or discharge. Mucous membranes pink and moist. NGT in place NECK: Trachea midline. No JVD. CARDIOVASCULAR: Regular rhythm, tachycardiac mildly RESPIRATORY: No accessory muscle use. Clear to auscultation. Breath sounds equal bilaterally. GASTROINTESTINAL: Abdomen soft, mildly tender, nondistended. Hepatic and splenic margins not palpable. MUSCULOSKELETAL: Extremities without clubbing, cyanosis, or edema. No obvious deformities. NEUROLOGICAL: Awake and alert. No obvious cranial nerve deficits. Motor grossly within normal limits. Five out of 5 muscle strength in the arms and legs. Normal speech. PSYCHIATRIC: Appropriate mood and affect; insight and judgment normal. - Urinary Catheter Management Indwelling Urethral Catheter Cath placed during this visit: yes, but has since been removed by the nurse Reason for continuing: Decision to DC catheter Insertion date: 01/02/18 Removal date: 01/04/18 Removal time: 09:45 Assessment and Plan - Assessment (1) Sinus tachycardia Code(s): R00.0 - Tachycardia, unspecified Status: Acute (2) Diverticulitis Code(s): K57.92 - Diverticulitis of intestine, part unspecified, without perforation or abscess without bleeding Status: Acute (3) Colovaginal fistula Code(s): N82.4 - Other female intestinal-genital tract fistulae Status: Acute - Plan 1) Colovesicular fistula s/p sigmoidectomy 2) Sinus tachycardia Most likely secondary to pain/nausea Heart rates getting better No PE on CTA Treat underlying cause (pain, nausea) 3) No further work up, will see PRN, call with questions
--- NOTE | 2018-01-07 16:00 | XR ---
EXAM DATE: 01/07/2018 3:44 PM EDT AGE/SEX: 67 years / Female INDICATIONS: Obstruction. CLINICAL DATA: This is the patient's initial encounter. Patient reports that signs and symptoms have been present for 4 - 6 days and indicates a pain score of 10/10. MEDICAL/SURGICAL HISTORY: Non-responsive. . Small bowel resection. COMPARISON: [facility] [place], ABDOMEN 1V KUB, 01/05/2018. . FINDINGS: Examination of the abdomen demonstrates a nonspecific bowel gas pattern with continued dilated loops of small bowel in the left side of the abdomen. A nasogastric tube is in place with its tip in the s tomach. A staghorn calculus is unchanged and the left kidney. which may reflect ileus. There are no f indings of small bowel obstruction. No free air is identified, no organomegaly is evident. Continued nonspecific bowel gas pattern which may reflect ileus or partial obstruction. There has bee n no significant change when compared to the prior exam. Electronically signed by: Saqib Fenton MD 01/07/2018 3:58 PM EDT
[2018-01-07] MEDS: Metoprolol Tartrate 50 MG Tablet PO SCH (22:08)
[2018-01-07] MEDS: Gabapentin 300 MG Capsule PO SCH (22:08)
[2018-01-08] MEDS: Promethazine 12.5 MG Supp RECTAL PRN ×3 (04:40→20:13)
[2018-01-08] MEDS: Potassium Chloride Inj 30 MEQ in Sod Chloride 0.9% Inj 1,000 ML IV.SIG SCH (07:50)
[2018-01-08] MEDS: Insulin NovoLOG Aspart Correctional Sugar Inj SQ SCH ×3 (09:08→17:00)
[2018-01-08] MEDS: Heparin - SQ 10,000 UNITS/ML Vial SQ SCH ×2 (09:11→22:19)
--- NOTE | 2018-01-08 10:37 | P.PN ---
Subjective Interval history: POD#6 s/p LAR, SBR more comfortable Physical Exam Vital signs: Vital Signs 01/07/18 11:00 01/07/18 12:00 01/07/18 13:00 Temperature 98.5 F Pulse Rate 99 H 104 H 103 H Respiratory Rate 17 Blood Pressure 150/63 H Pulse Oximetry 93 L 01/07/18 14:00 01/07/18 15:00 01/07/18 16:00 Temperature 98.3 F Pulse Rate 98 H 104 H 110 H Respiratory Rate 17 Blood Pressure 151/67 H Pulse Oximetry 93 L 01/07/18 17:00 01/07/18 18:00 01/07/18 19:00 Temperature 98.3 F Pulse Rate 104 H 100 H 99 H Respiratory Rate Blood Pressure 158/70 H Pulse Oximetry 93 L 01/07/18 20:00 01/07/18 21:00 01/07/18 22:00 Temperature Pulse Rate 101 H 97 H 99 H Respiratory Rate Blood Pressure Pulse Oximetry 01/07/18 23:00 01/08/18 00:00 01/08/18 01:00 Temperature 98 F Pulse Rate 81 79 79 Respiratory Rate Blood Pressure 144/63 H Pulse Oximetry 94 L 01/08/18 02:00 01/08/18 03:00 01/08/18 04:00 Temperature 98.2 F Pulse Rate 81 83 83 Respiratory Rate Blood Pressure Pulse Oximetry 94 L 01/08/18 05:00 01/08/18 06:00 01/08/18 07:00 Temperature 98.9 F Pulse Rate 81 85 87 Respiratory Rate 20 Blood Pressure 151/65 H Pulse Oximetry 95 01/08/18 08:00 01/08/18 10:00 Temperature Pulse Rate 87 91 H Respiratory Rate Blood Pressure Pulse Oximetry Intake & Output 01/07/18 01/08/18 01/08/18 18:59 06:59 18:59 Intake Total 1215 / 1215 2955 / 2955 295 / 295 Output Total 550 / 550 1250 / 1250 Balance 665 / 665 1705 / 1705 295 / 295 Weight 90.5 kg Intake: IV 1115 / 1115 2835 / 2835 295 / 295 KCl 20 mEq Premix Inj 20 meq In 100 / 100 100 / 100 100 ml @ 50 mls/hr IV.SIG Q2H [facility] Rx#:[id number] KCl Inj 30 MEQ In NS Inj 1,000 1015 / 1015 2735 / 2735 295 / 295 ML @ 100 mls/hr IV.SIG .Q10H9M [facility] Rx#:[id number] Oral 100 / 100 120 / 120 Output: Urine 550 / 550 700 / 700 Gastric Drainage 550 / 550 Right Nare Nasogastric Tube 550 / 550 Other: # Incontinent Voids 1 Date of Last Bowel Movement 01/02/18 01/02/18 - Constitutional no acute distress - Routine Respiratory Exam Comments: breathing symmetric bilaterally and nonlabored - Routine Abdominal Exam Comments: soft, mild distension, nontender wounds clean - Urinary Catheter Management Indwelling Urethral Catheter Cath placed during this visit: yes, but has since been removed by the nurse Reason for continuing: Decision to DC catheter Insertion date: 01/02/18 Removal date: 01/04/18 Removal time: 09:45 Results - Labs CBC & Chem 7: 01/07/18 03:56 01/07/18 03:56 Laboratory Results - last 24 hr 01/07/18 01/07/18 01/08/18 13:19 22:22 08:20 POC Glucose 144 H 108 101 - Imaging Impressions Abdomen X-Ray 01/07/18 00:00 CONCLUSION: Assessment and Plan - Assessment (1) Diverticulitis Code(s): K57.92 - Diverticulitis of intestine, part unspecified, without perforation or abscess without bleeding Status: Acute (2) Colovaginal fistula Code(s): N82.4 - Other female intestinal-genital tract fistulae Status: Acute - Plan HR WNL Ileus NGT output improving Continue fluid status slightly dry continue IVF check BMP [employer]
[2018-01-08 14:51] LABS: Anion Gap 7 meq/L (5-15); Blood Urea Nitrogen 15 mg/dL (7-18); Calcium 7.9 mg/dL (8.5-10.1); Chloride 111 meq/L (98-107); Glomerular Filtration Rate Greater Than 89 mL/min (>89); Glucose,Random 94 mg/dL (74-106); Potassium 3.9 meq/L (3.5-5.1); Sodium 146 meq/L (136-145)
[2018-01-08] MEDS: Gabapentin 300 MG Capsule PO SCH (22:19)
[2018-01-08] MEDS: Metoprolol Tartrate 50 MG Tablet PO SCH (22:19)
[2018-01-09 06:19] LABS: Anion Gap 7 meq/L (5-15); Blood Urea Nitrogen 16 mg/dL (7-18); Calcium 7.9 mg/dL (8.5-10.1); Carbon Dioxide 27.5 meq/L (21.0-32.0); Chloride 110 meq/L (98-107); Glomerular Filtration Rate Greater Than 89 mL/min (>89); Glucose,Random 93 mg/dL (74-106); Sodium 144 meq/L (136-145)
--- NOTE | 2018-01-09 08:57 | P.PN ---
Subjective Interval history: POD#7 s/p LAR, SBR ileus Physical Exam Vital signs: Vital Signs 01/08/18 10:00 01/08/18 11:00 01/08/18 12:00 Temperature 97.7 F Pulse Rate 91 H 94 H 86 Respiratory Rate 18 Blood Pressure 154/68 H Pulse Oximetry 97 01/08/18 14:00 01/08/18 15:00 01/08/18 16:00 Temperature 98 F Pulse Rate 94 H 93 H 92 H Respiratory Rate 17 Blood Pressure 164/72 H Pulse Oximetry 93 L 01/08/18 17:00 01/08/18 18:00 01/08/18 19:00 Temperature Pulse Rate 96 H 92 H 109 H Respiratory Rate Blood Pressure Pulse Oximetry 01/08/18 20:00 01/08/18 20:10 01/09/18 01:00 Temperature 97.5 F L 98 F Pulse Rate 102 H 109 H 78 Respiratory Rate 18 18 Blood Pressure 158/69 H 156/68 H Pulse Oximetry 96 94 L 01/09/18 04:00 01/09/18 04:50 01/09/18 05:00 Temperature 98 F Pulse Rate 95 H 80 101 H Respiratory Rate 18 Blood Pressure 142/65 H Pulse Oximetry 94 L 01/09/18 06:00 Temperature Pulse Rate 102 H Respiratory Rate Blood Pressure Pulse Oximetry Intake & Output 01/08/18 01/09/18 01/09/18 18:59 06:59 18:59 Intake Total 770 / 770 100 / 100 Output Total 800 / 800 900 / 900 Balance -30 / -30 -800 / -800 Weight 91.5 kg Intake: IV 590 / 590 KCl Inj 30 MEQ In NS Inj 1,000 590 / 590 ML @ 100 mls/hr IV.SIG .Q10H9M [facility] Rx#:[id number] Oral 180 / 180 100 / 100 Output: Urine 300 / 300 200 / 200 Gastric Drainage 500 / 500 700 / 700 Right Nare Nasogastric Tube 500 / 500 700 / 700 Other: # Incontinent Voids 2 Date of Last Bowel Movement 01/02/18 - Routine Respiratory Exam Comments: Breathing symmetric and nonlabored - Routine Abdominal Exam Comments: mild distension, nontender wounds clean - Urinary Catheter Management Indwelling Urethral Catheter Cath placed during this visit: yes, but has since been removed by the nurse Reason for continuing: Decision to DC catheter Insertion date: 01/02/18 Removal date: 01/04/18 Removal time: 09:45 Results - Labs CBC & Chem 7: 01/07/18 03:56 01/09/18 04:47 Laboratory Results - last 24 hr 01/08/18 01/08/18 01/08/18 12:29 13:53 16:34 Sodium 146 H Potassium 3.9 Chloride 111 H Carbon Dioxide 28.0 Anion Gap 7 BUN 15 Creatinine 0.57 Estimated GFR Greater than 89 POC Glucose 107 91 Random Glucose 94 Calcium 7.9 L 01/08/18 01/09/18 01/09/18 22:18 04:47 07:38 Sodium 144 Potassium 4.0 Chloride 110 H Carbon Dioxide 27.5 Anion Gap 7 BUN 16 Creatinine 0.52 Estimated GFR Greater than 89 POC Glucose 100 86 Random Glucose 93 Calcium 7.9 L Assessment and Plan - Assessment (1) Diverticulitis Code(s): K57.92 - Diverticulitis of intestine, part unspecified, without perforation or abscess without bleeding Status: Acute (2) Colovaginal fistula Code(s): N82.4 - Other female intestinal-genital tract fistulae Status: Acute - Plan HR WNL Ileus NGT output still high but suspect taking a lot of ice chips strict NPO [employer]il[employer]
[2018-01-09] MEDS: Heparin - SQ 10,000 UNITS/ML Vial SQ SCH ×2 (09:04→23:09)
[2018-01-09] MEDS: Insulin NovoLOG Aspart Correctional Sugar Inj SQ SCH ×4 (09:06→17:17)
[2018-01-09] MEDS: Potassium Chloride Inj 30 MEQ in Sod Chloride 0.9% Inj 1,000 ML IV.SIG SCH ×2 (14:12→17:17)
[2018-01-09] MEDS: Metoprolol Tartrate 50 MG Tablet PO SCH (23:10)
[2018-01-09] MEDS: Gabapentin 300 MG Capsule PO SCH (23:13)
[2018-01-10] MEDS: Insulin NovoLOG Aspart Correctional Sugar Inj SQ SCH ×5 (01:48→21:00)
[2018-01-10] MEDS: Potassium Chloride Inj 30 MEQ in Sod Chloride 0.9% Inj 1,000 ML IV.SIG SCH ×3 (09:12→21:00)
[2018-01-10] MEDS: Heparin - SQ 10,000 UNITS/ML Vial SQ SCH ×2 (09:12→20:18)
--- NOTE | 2018-01-10 11:02 | P.PNCS ---
Subjective Interval history: C/R Surg POD afebrile, VSS UO adeq NGT mod +stool Objective Result Diagrams: 01/07/18 03:56 01/09/18 04:47 Objective Remarks: PE alert Abd - large, +tympany, min tender Assessment and Plan - Assessment (1) Diverticulitis Code(s): K57.92 - Diverticulitis of intestine, part unspecified, without perforation or abscess without bleeding Status: Acute (2) Colovaginal fistula Code(s): N82.4 - Other female intestinal-genital tract fistulae Status: Acute - Plan Imp: Cont ileus, some bowel activity NGT to gravity OOB PT
[2018-01-10] MEDS: Metoprolol Tartrate 50 MG Tablet PO SCH (20:18)
[2018-01-10] MEDS: Gabapentin 300 MG Capsule PO SCH (20:18)
[2018-01-11] MEDS: Promethazine 12.5 MG Supp RECTAL PRN ×3 (03:17→22:53)
[2018-01-11] MEDS: Potassium Chloride Inj 30 MEQ in Sod Chloride 0.9% Inj 1,000 ML IV.SIG SCH ×4 (05:58→17:26)
[2018-01-11] MEDS: Insulin NovoLOG Aspart Correctional Sugar Inj SQ SCH ×4 (08:02→22:36)
[2018-01-11] MEDS: Heparin - SQ 10,000 UNITS/ML Vial SQ SCH ×2 (08:02→21:09)
--- NOTE | 2018-01-11 08:23 | P.DIET ---
Nutritional Evaluation Screening comments: NPO Alert X [address] if needed.
--- NOTE | 2018-01-11 11:26 | P.PNCS ---
Subjective Interval history: C/R Surg POD afebrile, VSS UO good NGT mod, not off suction +stools Objective Result Diagrams: 01/07/18 03:56 01/09/18 04:47 Objective Remarks: PE Alert Abd - soft, still tympany, wound clean Assessment and Plan - Assessment (1) Diverticulitis Code(s): K57.92 - Diverticulitis of intestine, part unspecified, without perforation or abscess without bleeding Status: Acute (2) Colovaginal fistula Code(s): N82.4 - Other female intestinal-genital tract fistulae Status: Acute - Plan Imp: Cont ileus, some bowel activity NGT to gravity - check residual OOB PT
[2018-01-11] MEDS: Gabapentin 300 MG Capsule PO SCH (21:09)
[2018-01-11] MEDS: Metoprolol Tartrate 50 MG Tablet PO SCH (21:09)
[2018-01-12] MEDS: Potassium Chloride Inj 30 MEQ in Sod Chloride 0.9% Inj 1,000 ML IV.SIG SCH (04:11)
[2018-01-12] MEDS: Heparin - SQ 10,000 UNITS/ML Vial SQ SCH ×2 (08:17→20:26)
[2018-01-12] MEDS: Insulin NovoLOG Aspart Correctional Sugar Inj SQ SCH ×4 (08:17→21:04)
[2018-01-12] MEDS: Promethazine 12.5 MG Supp RECTAL PRN ×2 (10:53→20:43)
--- NOTE | 2018-01-12 13:21 | P.PN ---
Subjective Interval history: POD#10 s/p LAR, SBR hungry Physical Exam Vital signs: Vital Signs 01/11/18 14:00 01/11/18 15:00 01/11/18 15:25 Temperature 97.6 F Pulse Rate 61 103 H 79 Respiratory Rate 18 Blood Pressure 145/63 H Pulse Oximetry 96 01/11/18 17:00 01/11/18 17:43 01/11/18 19:00 Temperature 97.7 F Pulse Rate 85 94 H 97 H Respiratory Rate 16 Blood Pressure 155/65 H Pulse Oximetry 96 01/11/18 20:00 01/11/18 21:00 01/11/18 22:00 Temperature Pulse Rate 94 H 96 H 88 Respiratory Rate Blood Pressure Pulse Oximetry 01/11/18 23:00 01/12/18 00:00 01/12/18 01:00 Temperature 97.8 F Pulse Rate 84 84 83 Respiratory Rate 16 Blood Pressure 142/62 H Pulse Oximetry 93 L 01/12/18 02:00 01/12/18 03:00 01/12/18 04:00 Temperature 97.7 F Pulse Rate 75 97 H 88 Respiratory Rate 16 Blood Pressure 104/51 L Pulse Oximetry 95 01/12/18 05:00 01/12/18 06:00 01/12/18 07:00 Temperature 98 F Pulse Rate 90 85 88 Respiratory Rate 16 Blood Pressure 119/58 L Pulse Oximetry 95 01/12/18 08:00 01/12/18 09:00 01/12/18 10:00 Temperature Pulse Rate 89 92 H 88 Respiratory Rate Blood Pressure Pulse Oximetry 01/12/18 11:00 01/12/18 12:00 Temperature 98.3 F Pulse Rate 88 90 Respiratory Rate 15 Blood Pressure 137/64 Pulse Oximetry 95 Intake & Output 01/11/18 01/12/18 01/12/18 18:59 06:59 18:59 Intake Total 2355 / 2355 1515 / 1515 Output Total 760 / 760 Balance 1595 / 1595 1515 / 1515 Weight 86.5 kg Intake: IV 2014 1015 / 1015 KCl Inj 30 MEQ In NS Inj 1,000 2014 1015 / 1015 ML @ 100 mls/hr IV.SIG .Q10H9M [facility] Rx#:[id number] Oral 340 / 340 500 / 500 Output: Urine 400 / 400 Gastric Drainage 360 / 360 Right Nare Nasogastric Tube 360 / 360 Other: # Voids 4 Date of Last Bowel Movement 01/11/18 01/11/18 # Bowel Movements 3 - Routine Abdominal Exam Comments: soft, nontender, nondistended wounds clean - Urinary Catheter Management Indwelling Urethral Catheter Cath placed during this visit: yes, but has since been removed by the nurse Reason for continuing: Decision to DC catheter Insertion date: 01/02/18 Removal date: 01/04/18 Removal time: 09:45 Results - Labs CBC & Chem 7: 01/07/18 03:56 01/09/18 04:47 Laboratory Results - last 24 hr 01/11/18 01/11/18 01/12/18 16:43 22:32 08:13 POC Glucose 81 78 65 L 01/12/18 11:58 POC Glucose 88 Assessment and Plan - Assessment (1) Diverticulitis Code(s): K57.92 - Diverticulitis of intestine, part unspecified, without perforation or abscess without bleeding Status: Acute (2) Colovaginal fistula Code(s): N82.4 - Other female intestinal-genital tract fistulae Status: Acute - Plan Advance diet Home soon
[2018-01-12] MEDS: Metoprolol Tartrate 50 MG Tablet PO SCH (20:27)
[2018-01-12] MEDS: Gabapentin 300 MG Capsule PO SCH (20:27)
[2018-01-13] MEDS: Insulin NovoLOG Aspart Correctional Sugar Inj SQ SCH ×2 (08:06→11:53)
[2018-01-13] MEDS: Heparin - SQ 10,000 UNITS/ML Vial SQ SCH (08:40)
[2018-01-13] MEDS: Promethazine 12.5 MG Supp RECTAL PRN (14:26)
--- NOTE | 2018-01-13 14:33 | P.PN ---
Subjective Interval history: POD#11 s/p LAR, SBR feels well, wants to go home Physical Exam Vital signs: Vital Signs 01/12/18 15:00 01/12/18 16:00 01/12/18 17:00 Temperature 97.9 F Pulse Rate 94 H 96 H 100 H Respiratory Rate 16 Blood Pressure 135/60 Pulse Oximetry 95 01/12/18 18:00 01/12/18 19:00 01/12/18 21:00 Temperature 98.3 F Pulse Rate 94 H 96 H 93 H Respiratory Rate 20 Blood Pressure 149/63 H Pulse Oximetry 96 01/12/18 22:00 01/12/18 23:00 01/13/18 00:00 Temperature 98.3 F Pulse Rate 89 96 H 86 Respiratory Rate 20 Blood Pressure 149/63 H Pulse Oximetry 96 01/13/18 01:00 01/13/18 03:00 01/13/18 04:00 Temperature 98.3 F Pulse Rate 77 89 89 Respiratory Rate 17 Blood Pressure 140/63 Pulse Oximetry 97 01/13/18 05:00 01/13/18 06:00 01/13/18 07:00 Temperature 97.6 F Pulse Rate 74 68 86 Respiratory Rate 20 Blood Pressure 139/66 Pulse Oximetry 96 01/13/18 08:00 01/13/18 09:00 01/13/18 10:00 Temperature Pulse Rate 80 82 80 Respiratory Rate Blood Pressure Pulse Oximetry 01/13/18 11:00 01/13/18 12:00 01/13/18 13:00 Temperature 97.9 F Pulse Rate 101 H 100 H 98 H Respiratory Rate 20 Blood Pressure 140/66 Pulse Oximetry 97 01/13/18 14:00 Temperature Pulse Rate 100 H Respiratory Rate Blood Pressure Pulse Oximetry Intake & Output 01/12/18 01/13/18 01/13/18 18:59 06:59 18:59 Intake Total 1165 / 1165 580 / 580 Output Total 400 / 400 Balance 1165 / 1165 180 / 180 Weight 86 kg Intake: IV 565 / 565 KCl Inj 30 MEQ In NS Inj 1,000 565 / 565 ML @ 100 mls/hr IV.SIG .[id number] Rx#:[id number] Oral 600 / 600 580 / 580 Output: Urine 400 / 400 Other: # Voids 3 2 Date of Last Bowel Movement 01/11/18 01/12/18 # Bowel Movements 4 2 - Routine Abdominal Exam Comments: soft, nondistended, mildly tender wounds clean - Urinary Catheter Management Indwelling Urethral Catheter Cath placed during this visit: yes, but has since been removed by the nurse Reason for continuing: Decision to DC catheter Insertion date: 01/02/18 Removal date: 01/04/18 Removal time: 09:45 Results - Labs CBC & Chem 7: 01/07/18 03:56 01/09/18 04:47 Laboratory Results - last 24 hr 01/12/18 01/12/18 01/13/18 16:45 20:56 07:50 POC Glucose 89 123 H 121 H 01/13/18 10:42 POC Glucose 207 H Assessment and Plan - Assessment (1) Diverticulitis Code(s): K57.92 - Diverticulitis of intestine, part unspecified, without perforation or abscess without bleeding Status: Acute (2) Colovaginal fistula Code(s): N82.4 - Other female intestinal-genital tract fistulae Status: Acute - Plan Doing well Home today followup 2 weeks
--- NOTE | 2018-02-05 13:55 | MD ---
cc: Penny Walton MD DATE OF DISCHARGE: 01/13/2018 ADMISSION DIAGNOSES: 1. Diabetes. 2. Colon stricture. 3. Colovaginal fistula. 4. Diverticulitis. DISCHARGE DIAGNOSES: 1. Diabetes. 2. Colon stricture. 3. Colovaginal fistula. 4. Diverticulitis. PROCEDURES: 1. Robotic/laparoscopic lysis of adhesions. 2. Robotic takedown of splenic flexure. 3. Robotic low-anterior resection. 4. Robotic small-bowel resection. HOSPITAL COURSE: The patient was admitted to the hospital on 01/02/2018, after an outpatient bowel prep. She was taken to the operating room where she underwent the above-named procedures. Postoperatively, she did well, with gradual return of her bowel and bladder function. She was discharged to home on 01/05/2018 with instructions to follow up with myself in the office. Final pathology was not available at the time of discharge. MD RADHA Diallo/kevin , 04:57 PM , 05:03 PM [email or web address]
== END 2018-01-13 15:07 | disposition home or self-care (01) ==
LOC: HSDI 06:31 → HCPC 18:49
PROVIDERS: ADMIT Colon & Rectal Surgery; ATTEND Colon & Rectal Surgery
DX: Z68.31 Body mass index [BMI] 31.0-31.9, adult; Z87.442 Personal history of urinary calculi; E87.70 Fluid overload, unspecified; K56.699 Other intestinal obstruction unspecified as to partial versus complete obstruction; E11.40 Type 2 diabetes mellitus with diabetic neuropathy, unspecified; E66.9 Obesity, unspecified; I10 Essential (primary) hypertension; N82.3 Fistula of vagina to large intestine; G62.9 Polyneuropathy, unspecified; R00.0 Tachycardia, unspecified; F17.210 Nicotine dependence, cigarettes, uncomplicated; K56.7 Ileus, unspecified; K57.32 Diverticulitis of large intestine without perforation or abscess without bleeding; J44.9 Chronic obstructive pulmonary disease, unspecified; N20.0 Calculus of kidney; G47.30 Sleep apnea, unspecified; R00.1 Bradycardia, unspecified; Z79.84 Long term (current) use of oral hypoglycemic drugs; K21.9 Gastro-esophageal reflux disease without esophagitis